=== PATIENT | female | born 1985 | race African-American/Black ===

== ENCOUNTER 2016-08-09 16:19 | Emergency (ER) | payer OTHER ==
[~2016-08-09] VITALS: Ht 170.2 cm; Wt 61.2 kg
--- NOTE | 2016-08-09 16:30 | NUR ---
PRESENTS SELF TO ED FOR LOWER ABDOMINAL PAIN SINCE LST NIGHT. PATIENT IS 31WKS. . NO BLEEDING, NO DYSURIA NOR HEMATURIA. DENIES NAUSEA AND VOMITTING. AFEBRILE. GOWNED PT AND PLACED ON TELE MONITOR. VSS
[2016-08-09 17:00] VITALS: BP 127/70
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
== END 2016-08-09 17:16 | disposition home or self-care (01) ==
LOC: ER 16:22
DX: Z53.21 Procedure and treatment not carried out due to patient leaving prior to being seen by health care provider (principal)
CPT/HCPCS: A4606; Z7610

== ENCOUNTER 2016-08-13 12:59 | Emergency (ER) | payer MEDICAID, OTHER ==
[~2016-08-13] VITALS: Ht 165.1 cm; Wt 52.2 kg
--- NOTE | 2016-08-13 13:21 | NUR ---
DR HALL AT BEDSIDE FOR EVAL.
[2016-08-13 13:24] VITALS: BP 116/81
--- NOTE | 2016-08-13 13:38 | NUR ---
U/S TECH AT BEDSIDE FOR PELVIC ULTRASOUND.
--- NOTE | 2016-08-13 13:59 | NUR ---
PARTS COUNTER SPECIALIST AT BEDSIDE FOR BLOOD DRAW.
[2016-08-13 14:03] LABS: BASOPHILS # (AUTO) 0.2 /CMM (0.0-0.2); BASOPHILS % (AUTO) 2.3 % (0.0-2.0); EOSINOPHILS # (AUTO) 0.2 /CMM (0.0-0.7); EOSINOPHILS % (AUTO) 2.4 % (0.0-6.0); HEMATOCRIT 41 % (33-45); HEMOGLOBIN 9.8 g/dL (11.5-14.8); LYMPHOCYTES # (AUTO) 1.2 /CMM (0.8-4.8); LYMPHOCYTES % (AUTO) 18.6 % (20.0-44.0); MEAN CORPUSCULAR HEMOGLOBIN 21 PG (26.0-33.0); MEAN CORPUSCULAR HGB CONC 24 g/dl (31.0-36.0); MEAN CORPUSCULAR VOLUME 89 fL (82-100); MONOCYTES # (AUTO) 0.3 /CMM (0.1-1.30); NEUTROPHILS # (AUTO) 4.8 /CMM (1.8-8.9); NEUTROPHILS % (AUTO) 71.7 % (43.0-81.0); PLATELET COUNT (AUTO) 241 /CMM (150-450); RDW COEFFICIENT OF VARIATION 10.6 (11.5-15.0); RED BLOOD CELL COUNT(AUTO) 4.58 MIL/uL (4.0-5.2); WHITE BLOOD COUNT (AUTO) 6.7 K/uL (4.3-11.0)
[2016-08-13 14:13] LABS: CALCIUM, SERUM 8.6 mg/dL (8.5-10.1); CREATININE 0.5 mg/dL (0.6-1.3); POTASSIUM 3.6 mmol/L (3.5-5.1)
[2016-08-13 14:51] LABS: APPEARANCE,URINE Clear (CLEAR); BILIRUBIN,URINE Negative (NEGATIVE); BLOOD, URINE Negative Ery/uL (NEGATIVE); COLOR,URINE Yellow (YELLOW); KETONES,URINE Negative (NEGATIVE); LEUKOCYTE ESTERASE ,URINE Negative (NEGATIVE); NITRITE, URINE Negative (NEGATIVE); PH,URINE 6.5 (5.0-8.0); PROTEIN,URINE Negative (NEGATIVE); UGLUCOSE Negative (NEGATIVE); UROBILINOGEN,URINE 0.2 EU/dL (0.2)
--- NOTE | 2016-08-13 15:03 | NUR ---
Patient discharged to home in stable condition. Written and verbal after care instructions given. Patient verbalizes understanding of instruction.
== END 2016-08-13 15:04 | disposition home or self-care (01) ==
LOC: ER 13:01
DX: O20.0 Threatened abortion (principal)
CPT/HCPCS: 36415; 76856; 80048; 81001; 84702; 85025; 99285; A4606; Z7610; 81000-TC

== ENCOUNTER 2016-09-05 14:23 | Emergency (ER) | payer MEDICAID ==
[~2016-09-05] VITALS: Ht 167.6 cm; Wt 60.3 kg
[2016-09-05] MEDS ORDERED: ACETAMINOPHEN 325 MG TABLET PO ONE (15:30)
[2016-09-05 16:16] VITALS: BP 111/74
== END 2016-09-05 17:00 | disposition home or self-care (01) ==
LOC: ER 14:25
DX: O03.9 Complete or unspecified spontaneous abortion without complication (principal); Z3A.11 11 weeks gestation of pregnancy; D64.9 Anemia, unspecified
CPT/HCPCS: 76856; 99284; A4606; Z7610

== ENCOUNTER 2017-08-20 16:22 | Emergency (ER) | payer MEDICAID, OTHER | END 2017-08-20 16:42 | disposition left against medical advice (07) | LOC: ER 16:23 | DX: Z53.21 Procedure and treatment not carried out due to patient leaving prior to being seen by health care provider (principal) ==

== ENCOUNTER 2017-10-05 13:29 | Emergency (ER) | payer OTHER ==
[~2017-10-05] VITALS: Ht 165.1 cm; Wt 63.5 kg
[2017-10-05 13:34] VITALS: BP 124/87
== END 2017-10-05 14:09 | disposition home or self-care (01) ==
LOC: ER 13:30
DX: J06.9 Acute upper respiratory infection, unspecified (principal)
CPT/HCPCS: A4606; Z7610

== ENCOUNTER 2018-02-19 06:51 | Emergency (ER) | payer MEDICAID ==
[~2018-02-19] VITALS: Ht 167.6 cm; Wt 63.5 kg
--- NOTE | 2018-02-19 06:51 | NUR ---
headache w/ rt side facial pain, N/V, no dizziness x last night. VSS NO ACUTE DISTRESS NOTED AT THIS TIME. SKIN WARM AND INTACT. PT IS ALERT AND ORIENTEDX4 ABLE TO MAKE NEEDS KNOWN. BREATHING RATE WNL WITH ADEQUATE CHEST RISE/FALL. WILL ENDORSE CARE TO AM NURSE.
--- NOTE | 2018-02-19 06:52 | NUR ---
ER MD OSMAN AT BEDSIDE
--- NOTE | 2018-02-19 07:10 | NUR ---
NOT ABLE TO PROVIDE URINE SPECIMEN AT THIS TIME
[2018-02-19] MEDS ORDERED: ONDANSETRON HCL/PF 4 MG/2 ML VIAL IVP ONE (07:30)
[2018-02-19] MEDS ORDERED: MORPHINE SULFATE INJ 2 MG/ML DISP.SYRIN IV ONE ×2 (07:30→12:00)
[2018-02-19] MEDS ORDERED: IV NS 0.9% 1,000 ML BAG IV ONE (07:30)
--- NOTE | 2018-02-19 07:30 | NUR ---
TRIED TO PUT IV PERIPHERAL LINE, UNSUCCESSFUL AT FIRST TRY, PT DOES NOT WANT TO BE POKED TWICE. ABLE TO GIVE IV MEDICATION BEFORE TOTALLY PULLING OUT IV CATH. NOT ABLE TO GIVE NS 0.9% 1000ML.
[2018-02-19] MEDS ORDERED: ONDANSETRON HCL/PF 4 MG/2 ML VIAL ONE (07:33)
[2018-02-19] MEDS ORDERED: MORPHINE SULFATE INJ 4 MG/ML DISP.SYRIN ONE ×2 (07:33→11:35)
[2018-02-19] MEDS ORDERED: HYDROCODONE/APAP 5/325MG 1 EACH TABLET PO ONE (08:00)
[2018-02-19] MEDS ORDERED: ONDANSETRON 4 MG TAB.RAPDIS PO ONE (08:00)
[2018-02-19 08:20] LABS: BASOPHILS % (AUTO) 0.5 % (0.0-2.0); EOSINOPHILS % (AUTO) 0.7 % (0.0-6.0); HEMATOCRIT 41 % (33-45); HEMOGLOBIN 13.6 g/dL (11.5-14.8); LYMPHOCYTES % (AUTO) 13.6 % (20.0-44.0); MEAN CORPUSCULAR HGB CONC 33 g/dl (31.0-36.0); MEAN CORPUSCULAR VOLUME 94 fL (82-100); MONOCYTES # (AUTO) 0.4 /CMM (0.1-1.30); MONOCYTES % (AUTO) 4.6 % (2.0-12.0); NEUTROPHILS # (AUTO) 6.2 /CMM (1.8-8.9); NEUTROPHILS % (AUTO) 80.6 % (43.0-81.0); PLATELET COUNT (AUTO) 258 /CMM (150-450); RED BLOOD CELL COUNT(AUTO) 4.39 MIL/uL (4.0-5.2); WHITE BLOOD COUNT (AUTO) 7.6 K/uL (4.3-11.0)
[2018-02-19 08:24] LABS: CALCIUM, SERUM 9.2 mg/dL (8.5-10.1); CREATININE 0.9 mg/dL (0.6-1.3)
--- NOTE | 2018-02-19 08:52 | NUR ---
OUT FOR CT OF HEAD WO CONTRAST, SIGNED WAIVER FOR TEST URINE
[2018-02-19] MEDS ORDERED: HYDROCODONE/APAP 5/325MG 1 EACH TABLET ONE (09:14)
--- NOTE | 2018-02-19 11:41 | NUR ---
PT STILL C/O PAIN, DR OSMAN AWARE. VERBAL ORDER OF MORPHINE 4MG IVP CARRIED OUT. WILL CONTINUE TO MONITOR.
--- NOTE | 2018-02-19 12:12 | NUR ---
Patient discharged to home in stable condition. Instructed not to drive. Written and verbal after care instructions given. Patient verbalizes understanding of instruction.
[2018-02-19 12:14] VITALS: BP 132/84
== END 2018-02-19 12:14 | disposition home or self-care (01) ==
LOC: ER 06:54
DX: R51 Headache (principal); F10.10 Alcohol abuse, uncomplicated; Y90.9 Presence of alcohol in blood, level not specified
CPT/HCPCS: 36415; 70450; 80048; 85025; 85730; 96374 ×2; 96376; 99284; A4606; J2270 ×2; J2405; J7030; Z7610

== ENCOUNTER 2018-08-28 09:35 | Emergency (ER) | payer MEDICAID ==
[~2018-08-28] VITALS: Ht 167.6 cm; Wt 61.2 kg
[2018-08-28 09:43] VITALS: BP 140/86
== END 2018-08-28 10:02 | disposition home or self-care (01) ==
LOC: ER 09:35
DX: S00.81XA Abrasion of other part of head, initial encounter (principal); G44.209 Tension-type headache, unspecified, not intractable; F10.10 Alcohol abuse, uncomplicated; I10 Essential (primary) hypertension; Y90.9 Presence of alcohol in blood, level not specified; X58.XXXA Exposure to other specified factors, initial encounter; Y93.89 Activity, other specified; Y92.89 Other specified places as the place of occurrence of the external cause; Y99.8 Other external cause status

== ENCOUNTER 2019-10-13 12:49 | Emergency (ER) | payer MEDICAID ==
[~2019-10-13] VITALS: Ht 165.1 cm; Wt 61.2 kg
[2019-10-13 12:53] VITALS: BP 138/88
[2019-10-13] MEDS ORDERED: IBUPROFEN 600 MG TABLET PO ONE ×2 (13:30→13:45)
--- NOTE | 2019-10-13 14:03 | NUR ---
Left velco wrist applied by IRIS Valencia Patient discharged to home in stable condition. Written and verbal after care instructions given. Patient verbalizes understanding of instruction.
== END 2019-10-13 14:04 | disposition home or self-care (01) ==
LOC: ER 12:51
DX: S53.492A Other sprain of left elbow, initial encounter (principal); S60.212A Contusion of left wrist, initial encounter; V19.9XXA Pedal cyclist (driver) (passenger) injured in unspecified traffic accident, initial encounter; Y93.55 Activity, bike riding; Y92.89 Other specified places as the place of occurrence of the external cause; Y99.8 Other external cause status
CPT/HCPCS: 73080-TC; 73100-TC

== ENCOUNTER 2020-01-25 13:16 | Emergency (ER) | payer MEDICAID ==
[~2020-01-25] VITALS: Ht 167.6 cm; Wt 63.5 kg
--- NOTE | 2020-01-25 13:25 | NUR ---
pt came to ER with c/o headache all day. c/o nausea and +vomit this morning. no fever noted. no abdominal pain. pt able to move all upper and lower extremities without any difficulty. no seizure. awaiting for MD dejesus
[2020-01-25 13:52] VITALS: BP 121/77
== END 2020-01-25 13:52 | disposition home or self-care (01) ==
LOC: ER 13:21
DX: R51.9 Headache, unspecified (principal); R11.2 Nausea with vomiting, unspecified

== ENCOUNTER 2020-06-09 18:10 | Emergency (ER) | payer MEDICAID ==
[~2020-06-09] VITALS: Ht 167.6 cm; Wt 65.8 kg
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
[2020-06-09] MEDS ORDERED: ACETAMINOPHEN 325 MG TABLET PO ONE (19:00)
[2020-06-09] MEDS ORDERED: oxyCODONE IR immediate release 5 MG PO PRN (19:00)
[2020-06-09] MEDS ORDERED: ACETAMINOPHEN 325 MG TABLET ONE (19:01)
--- NOTE | 2020-06-09 19:08 | NUR ---
WASHER HAND AT BEDSIDE FOR XRAY
[2020-06-09] MEDS ORDERED: oxyCODONE/APAP (5/325 MG) 1 UDTAB TABLET ONE (19:10)
--- NOTE | 2020-06-09 19:21 | NUR ---
REPORT GIVEN TO ROBIN LANDRUM FOR LUCIUS
[2020-06-09] MEDS ORDERED: oxyCODONE/APAP (5/325 MG) 1 UDTAB TABLET PO ONE (19:30)
[2020-06-09] MEDS ORDERED: ONDANSETRON 4 MG TAB.RAPDIS SL ONE (19:30)
[2020-06-09] MEDS ORDERED: ONDANSETRON 4 MG TAB.RAPDIS ONE (19:39)
[2020-06-09] MEDS ORDERED: OXYC-128 PO (20:39)
--- NOTE | 2020-06-09 20:49 | NUR ---
Patient discharged to home in stable condition. Written and verbal after care instructions given. Patient verbalizes understanding of instruction and RX. Pt ambulated out of ED. VSS.
[2020-06-09 20:50] VITALS: BP 124/79
== END 2020-06-09 21:12 | disposition home or self-care (01) ==
LOC: ER 18:16
DX: S70.12XA Contusion of left thigh, initial encounter (principal); R51.9 Headache, unspecified; M54.2 Cervicalgia; M25.522 Pain in left elbow; Z88.6 Allergy status to analgesic agent; Z79.899 Other long term (current) drug therapy; V49.49XA Driver injured in collision with other motor vehicles in traffic accident, initial encounter; Y93.89 Activity, other specified; Y92.413 State road as the place of occurrence of the external cause; Y99.8 Other external cause status
CPT/HCPCS: 71045; 73070; 99284; Q0162

== ENCOUNTER 2020-06-11 15:38 | Emergency (ER) | payer MEDICAID ==
[~2020-06-11] VITALS: Ht 167.6 cm; Wt 65.8 kg
[~2020-06-11 15:38] MED LIST: OXYC-128 PO
[2020-06-11 15:45] VITALS: BP 128/88
[2020-06-11 16:35] LABS: BASOPHILS % (AUTO) 0.5 % (0.0-2.0); HEMATOCRIT 36 % (33-45); HEMOGLOBIN 12.1 g/dL (11.5-14.8); LYMPHOCYTES # (AUTO) 1.5 /CMM (0.8-4.8); LYMPHOCYTES % (AUTO) 34.7 % (20.0-44.0); MEAN CORPUSCULAR HGB CONC 33 g/dl (31.0-36.0); MEAN CORPUSCULAR VOLUME 95 fL (82-100); MONOCYTES # (AUTO) 0.4 /CMM (0.1-1.30); MONOCYTES % (AUTO) 9.1 % (2.0-12.0); NEUTROPHILS # (AUTO) 2.3 /CMM (1.8-8.9); NEUTROPHILS % (AUTO) 52.7 % (43.0-81.0); PLATELET COUNT (AUTO) 223 /CMM (150-450); RED BLOOD CELL COUNT(AUTO) 3.81 MIL/uL (4.0-5.2); WHITE BLOOD COUNT (AUTO) 4.4 K/uL (4.3-11.0)
[2020-06-11 16:42] LABS: CALCIUM, SERUM 8.4 mg/dL (8.5-10.1); CREATININE 0.8 mg/dL (0.6-1.3); POTASSIUM 3.8 mmol/L (3.5-5.1)
--- NOTE | 2020-06-11 17:48 | NUR ---
PT. VERBALIZED UNDERSTANDING OF AFTERCARE INSTRUCTIONS.
== END 2020-06-11 17:50 | disposition home or self-care (01) ==
LOC: ER 15:55
DX: S70.12XA Contusion of left thigh, initial encounter (principal); S80.11XA Contusion of right lower leg, initial encounter; S40.022A Contusion of left upper arm, initial encounter; S40.021A Contusion of right upper arm, initial encounter; F10.10 Alcohol abuse, uncomplicated; I10 Essential (primary) hypertension; Y90.9 Presence of alcohol in blood, level not specified; Z79.899 Other long term (current) drug therapy; Z88.6 Allergy status to analgesic agent; X58.XXXA Exposure to other specified factors, initial encounter; Y93.89 Activity, other specified; Y92.89 Other specified places as the place of occurrence of the external cause; Y99.8 Other external cause status
CPT/HCPCS: 36415; 80048-TC; 85025-TC; 85610-TC; 85730-TC; 93971-TC

== ENCOUNTER 2020-07-21 18:54 | Emergency (ER) | payer MEDICAID ==
[~2020-07-21] VITALS: Ht 167.6 cm; Wt 63.5 kg
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
[2020-07-21] MEDS ORDERED: HYDROCODONE/APAP 5/325MG TABLET ONE (19:14)
[2020-07-21] MEDS: HYDROCODONE/APAP 5/325MG TABLET PO ONE (19:15)
--- NOTE | 2020-07-21 19:15 | NUR ---
XRAY AT BEDSIDE
--- NOTE | 2020-07-21 19:30 | NUR ---
emt at bedside for wound care and crutch training
[2020-07-21] MEDS ORDERED: TRAM50TA2 PO (19:42)
[2020-07-21] MEDS: TDAP [DIPH/PERTUSSIS/TET] 0.5 ML VIAL IM ONE (19:45)
--- NOTE | 2020-07-21 19:45 | NUR ---
Patient discharged to home in stable condition. Written and verbal after care instructions given. Patient verbalizes understanding of instruction.Pt ambulatory with a steady gait
[2020-07-21] MEDS ORDERED: TDAP [DIPH/PERTUSSIS/TET] 0.5 ML VIAL IM ONE (19:47)
[2020-07-21 19:55] VITALS: BP 120/85
== END 2020-07-21 19:45 | disposition home or self-care (01) ==
LOC: ER 18:58
DX: S91.111A Laceration without foreign body of right great toe without damage to nail, initial encounter (principal); F10.10 Alcohol abuse, uncomplicated; Y90.9 Presence of alcohol in blood, level not specified; Z79.899 Other long term (current) drug therapy; W01.0XXA Fall on same level from slipping, tripping and stumbling without subsequent striking against object, initial encounter; Y93.89 Activity, other specified; Y92.89 Other specified places as the place of occurrence of the external cause; Y99.8 Other external cause status
CPT/HCPCS: 73630; 90471; 90715; 99283; A6403

== ENCOUNTER 2020-09-16 17:17 | Emergency (ER) | payer MEDICAID ==
[~2020-09-16] VITALS: Ht 167.6 cm; Wt 63.5 kg
[~2020-09-16 17:17] MED LIST changes: +TRAM50TA2 PO
--- NOTE | 2020-09-16 17:30 | NUR ---
Patient came in to the er c/o "CALIXTO started this am more on left side. +blurry Vison/CP/SOB". On room air, breathing evenly and unlabored. Kept comfortable, will continue to monitor accordingly.
[2020-09-16] MEDS ORDERED: ONDANSETRON 4 MG TAB.RAPDIS ONE (17:47)
[2020-09-16] MEDS ORDERED: HYDROCODONE/APAP 5/325MG TABLET ONE (17:47)
[2020-09-16] MEDS: HYDROCODONE/APAP 5/325MG TABLET PO ONE (17:53)
[2020-09-16] MEDS: ONDANSETRON 4 MG TAB.RAPDIS PO ONE (17:54)
[2020-09-16] MEDS ORDERED: SUMA50TA PO (18:33)
[2020-09-16 19:08] VITALS: BP 135/77
--- NOTE | 2020-09-16 19:08 | NUR ---
Patient discharged to home in stable condition. Written and verbal after care instructions given. Patient verbalizes understanding of instruction.
== END 2020-09-16 19:08 | disposition home or self-care (01) ==
LOC: ER 17:22
DX: R51.9 Headache, unspecified (principal); R06.02 Shortness of breath; R07.89 Other chest pain; Z88.6 Allergy status to analgesic agent; Z79.899 Other long term (current) drug therapy
CPT/HCPCS: 99283; Q0162

== ENCOUNTER 2020-09-24 16:01 | Emergency (ER) | payer MEDICAID ==
[~2020-09-24] VITALS: Ht 167.6 cm; Wt 65.8 kg
[~2020-09-24 16:01] MED LIST changes: +SUMA50TA PO
[2020-09-24] MEDS: ONDANSETRON HCL/PF 4 MG/2 ML VIAL IVP ONE (17:00)
[2020-09-24] MEDS: IV NS 0.9% 1,000 ML BAG IV ONE (17:00)
[2020-09-24] MEDS: MORPHINE SULFATE INJ 2 MG/ML DISP.SYRIN IV ONE ×2 (17:00→20:11)
[2020-09-24] MEDS ORDERED: ONDANSETRON HCL/PF 4 MG/2 ML VIAL ONE (17:38)
[2020-09-24] MEDS ORDERED: MORPHINE SULFATE INJ 4 MG/ML DISP.SYRIN ONE ×2 (17:39→19:34)
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
[2020-09-24 18:51] LABS: ALBUMIN 4.3 g/dL (3.4-5.0); BILIRUBIN,DIRECT 0.2 mg/dL (0.0-0.2); BILIRUBIN,TOTAL 0.9 mg/dL (0.2-1.0); CALCIUM, SERUM 9.4 mg/dL (8.5-10.1); CREATININE 0.7 mg/dL (0.6-1.3); POTASSIUM 4.1 mmol/L (3.5-5.1); TOTAL PROTEIN, SERUM 7.9 g/dL (6.4-8.2)
--- NOTE | 2020-09-24 19:30 | NUR ---
zeeshan rn spoke withn pt heather pleasant had a talk and all is good
[2020-09-24 19:47] LABS: BASOPHILS # (AUTO) 0.1 K/uL (0.0-0.2); BASOPHILS % (AUTO) 0.8 % (0.0-2.0); EOSINOPHILS % (AUTO) 0.7 % (0.0-6.0); HEMATOCRIT 41 % (33-45); HEMOGLOBIN 13.1 g/dL (11.5-14.8); LYMPHOCYTES # (AUTO) 1.2 K/uL (0.8-4.8); LYMPHOCYTES % (AUTO) 17.3 % (20.0-44.0); MEAN CORPUSCULAR HGB CONC 32 g/dl (31.0-36.0); MEAN CORPUSCULAR VOLUME 97 fL (82-100); MONOCYTES # (AUTO) 0.4 K/uL (0.1-1.30); MONOCYTES % (AUTO) 6.2 % (2.0-12.0); NEUTROPHILS # (AUTO) 5.2 K/uL (1.8-8.9); PLATELET COUNT (AUTO) 289 K/uL (150-450); RED BLOOD CELL COUNT(AUTO) 4.21 MIL/uL (4.0-5.2); WHITE BLOOD COUNT (AUTO) 6.9 K/uL (4.3-11.0)
--- NOTE | 2020-09-24 19:59 | NUR ---
URINE COLLECTED AND SENT TO THE LAB.
[2020-09-24 20:26] LABS: BILIRUBIN,URINE NEGATIVE (NEGATIVE); COLOR,URINE YELLOW (YELLOW); LEUKOCYTE ESTERASE ,URINE TRACE (NEGATIVE); NITRITE, URINE NEGATIVE (NEGATIVE); PROTEIN,URINE NEGATIVE (NEGATIVE); UGLUCOSE NEGATIVE (NEGATIVE); UROBILINOGEN,URINE 0.2 EU/dL (0.2)
[2020-09-24 20:32] LABS: BACTERIA,URINE 2+ /HPF (None Seen)
--- NOTE | 2020-09-24 21:29 | NUR ---
CALLED VALERI TO HAVE IMAGE READ
[2020-09-24] MEDS ORDERED: ONDA4TAB5 PO (22:02)
--- NOTE | 2020-09-24 22:20 | NUR ---
Patient discharged to home in stable condition. Written and verbal after care instructions given. Patient verbalizes understanding of instruction.IV removed. Catheter intact and site benign. Pressure and 4x4 applied to site. No bleeding noted. Pt ambulatory with a steady gait
[2020-09-24 23:19] VITALS: BP 81/119
== END 2020-09-24 22:21 | disposition home or self-care (01) ==
LOC: ER 16:18
DX: R55 Syncope and collapse (principal); F19.10 Other psychoactive substance abuse, uncomplicated; Z88.6 Allergy status to analgesic agent; Z79.899 Other long term (current) drug therapy
CPT/HCPCS: 36415; 70450; 71045; 80048; 80076; 81001; 84703; 85025; 87086; 93005; 96361; 96374; 96375; 96376; 99285; J2270 ×2; J2405; J7030; 87186-TC

== ENCOUNTER 2021-01-29 05:40 | Emergency (ER) | payer MEDICAID ==
[~2021-01-29] VITALS: Ht 167.6 cm; Wt 63.5 kg
[~2021-01-29 05:40] MED LIST changes: +ONDA4TAB5 PO
--- NOTE | 2021-01-29 06:29 | NUR ---
URINE COLLECTED AND SENT TO LAB
--- NOTE | 2021-01-29 06:30 | NUR ---
PT A/O X 3, CAME FROM HOME WOKE UP WITH ABDOMIANL PAIN /. IV TO LAC 20 GUAGE STARTED WITH GOOD BLOOD RETURN. ALL NEEDS MET. WILL CONT, TO MONITOR PT.
--- NOTE | 2021-01-29 06:31 | NUR ---
ADDENDUM: Intravenous End Time Documentation: Normal saline 1 liter (IV-WO) : start time: 0631 am ; end time:730 am : IV site: LAC PIV # 20 Port #1
[2021-01-29] MEDS ORDERED: MORPHINE SULFATE INJ 2 MG/ML DISP.SYRIN ONE (06:45)
[2021-01-29] MEDS ORDERED: ONDANSETRON HCL/PF 4 MG/2 ML VIAL ONE (06:46)
[2021-01-29] MEDS: IV NS 0.9% 1,000 ML BAG IV ONE (06:53)
[2021-01-29] MEDS: ONDANSETRON HCL/PF 4 MG/2 ML VIAL IVP ONE (06:54)
[2021-01-29] MEDS: MORPHINE SULFATE INJ 2 MG/ML DISP.SYRIN IV ONE (06:54)
--- NOTE | 2021-01-29 07:14 | NUR ---
IV INFILTRATED AND PT REFUSE RESTART. IV REMOVED. MADE AWARE PATIENT OKAY TO DRINK FLUIDS.
[2021-01-29 07:18] LABS: BILIRUBIN,URINE NEGATIVE (NEGATIVE); LEUKOCYTE ESTERASE ,URINE NEGATIVE (NEGATIVE); NITRITE, URINE NEGATIVE (NEGATIVE); PROTEIN,URINE NEGATIVE (NEGATIVE); UGLUCOSE NEGATIVE (NEGATIVE); UROBILINOGEN,URINE 0.2 EU/dL (0.2)
[2021-01-29 07:28] LABS: COLOR,URINE YELLOW (YELLOW)
[2021-01-29 07:29] LABS: SQUAMOUS EPITHELIAL CELL,UR Moderate /HPF (None Seen)
[2021-01-29 07:30] LABS: BACTERIA,URINE Moderate /HPF (None Seen); BASOPHILS # (AUTO) 0.1 K/uL (0.0-0.2); BASOPHILS % (AUTO) 1.3 % (0.0-2.0); EOSINOPHILS % (AUTO) 2.9 % (0.0-6.0); HEMATOCRIT 40 % (33-45); LYMPHOCYTES # (AUTO) 1.5 K/uL (0.8-4.8); LYMPHOCYTES % (AUTO) 32.6 % (20.0-44.0); MEAN CORPUSCULAR HGB CONC 33 g/dl (31.0-36.0); MEAN CORPUSCULAR VOLUME 95 fL (82-100); MONOCYTES # (AUTO) 0.3 K/uL (0.1-1.30); MONOCYTES % (AUTO) 6.8 % (2.0-12.0); NEUTROPHILS # (AUTO) 2.5 K/uL (1.8-8.9); NEUTROPHILS % (AUTO) 56.4 % (43.0-81.0); PLATELET COUNT (AUTO) 218 K/uL (150-450); RED BLOOD CELL COUNT(AUTO) 4.18 MIL/uL (4.0-5.2); WHITE BLOOD COUNT (AUTO) 4.4 K/uL (4.3-11.0)
[2021-01-29 07:44] LABS: ALBUMIN 3.9 g/dL (3.4-5.0); BILIRUBIN,DIRECT 0.1 mg/dL (0.0-0.2); BILIRUBIN,TOTAL 0.4 mg/dL (0.2-1.0); CALCIUM, SERUM 8.4 mg/dL (8.5-10.1); CREATININE 0.8 mg/dL (0.6-1.3); POTASSIUM 4.4 mmol/L (3.5-5.1); TOTAL PROTEIN, SERUM 7.5 g/dL (6.4-8.2)
[2021-01-29] MEDS ORDERED: ONDANSETRON 4 MG TAB.RAPDIS SL ONE (09:00)
[2021-01-29 09:44] VITALS: BP 127/81
--- NOTE | 2021-01-29 09:44 | NUR ---
IV removed. Catheter intact and site benign. Pressure and 4x4 applied to site. No bleeding noted. Patient discharged to home in stable condition. Written and verbal after care instructions given. Patient verbalizes understanding of instruction.
== END 2021-01-29 09:45 | disposition home or self-care (01) ==
LOC: ER 05:42
DX: G89.29 Other chronic pain (principal); R10.84 Generalized abdominal pain; Z88.6 Allergy status to analgesic agent; Z79.899 Other long term (current) drug therapy
CPT/HCPCS: 36415; 74176; 80048; 80076; 80307; 81001; 83690; 84703; 85025; 87086; 96361; 96374; 96375; 99284; J2270; J2405; J7030

== ENCOUNTER 2021-04-11 11:57 | Emergency (ER) | payer MEDICAID ==
[~2021-04-11] VITALS: Ht 165.1 cm; Wt 68.0 kg
--- NOTE | 2021-04-11 12:17 | NUR ---
pt self presents to ED. ammbulatory to er bed 16 c/o severe abdominal pain w/ nausea and vomiting w/ noted blood tinged vomitous since yesterday. pt with hx of colitis. gowned and placed on monitor stable vitals. awaiting md dejesus.
--- NOTE | 2021-04-11 12:33 | NUR ---
dr marlow at bedside for eval
[2021-04-11] MEDS ORDERED: ONDANSETRON HCL/PF 4 MG/2 ML VIAL ONE ×2 (12:56→13:53)
[2021-04-11] MEDS ORDERED: MORPHINE SULFATE INJ 4 MG/ML DISP.SYRIN ONE ×2 (12:56→13:53)
[2021-04-11] MEDS ORDERED: IV NS 0.9% 1,000 ML BAG IV ONE (13:00)
[2021-04-11] MEDS ORDERED: MORPHINE SULFATE INJ 2 MG/ML DISP.SYRIN IV ONE ×2 (13:00→14:00)
[2021-04-11] MEDS ORDERED: ONDANSETRON HCL/PF 4 MG/2 ML VIAL IVP ONE (13:00)
--- NOTE | 2021-04-11 13:05 | NUR ---
iv line started blood drawn and sent to lab.
[2021-04-11 13:18] LABS: BASOPHILS % (AUTO) 0.4 % (0.0-2.0); EOSINOPHILS % (AUTO) 0.5 % (0.0-6.0); HEMATOCRIT 41 % (33-45); HEMOGLOBIN 13.8 g/dL (11.5-14.8); LYMPHOCYTES # (AUTO) 0.9 K/uL (0.8-4.8); LYMPHOCYTES % (AUTO) 11.9 % (20.0-44.0); MEAN CORPUSCULAR HGB CONC 34 g/dl (31.0-36.0); MEAN CORPUSCULAR VOLUME 93 fL (82-100); MONOCYTES # (AUTO) 0.5 K/uL (0.1-1.30); MONOCYTES % (AUTO) 7.4 % (2.0-12.0); NEUTROPHILS # (AUTO) 5.9 K/uL (1.8-8.9); NEUTROPHILS % (AUTO) 79.8 % (43.0-81.0); PLATELET COUNT (AUTO) 267 K/uL (150-450); RED BLOOD CELL COUNT(AUTO) 4.44 MIL/uL (4.0-5.2); WHITE BLOOD COUNT (AUTO) 7.4 K/uL (4.3-11.0)
[2021-04-11] MEDS ORDERED: IOHEXOL-350 100 ML VIAL IV ONE (13:19)
[2021-04-11] MEDS ORDERED: IV NS 0.9% 250 ML IV ONE (13:19)
[2021-04-11] MEDS ORDERED: CT SWABBABLE VALVE TRANS SET 1 EA INFUS.SET MC ONE (13:19)
[2021-04-11 13:33] LABS: ALBUMIN 4.2 g/dL (3.4-5.0); BILIRUBIN,DIRECT 0.3 mg/dL (0.0-0.2); CALCIUM, SERUM 8.8 mg/dL (8.5-10.1); POTASSIUM 3.6 mmol/L (3.5-5.1); TOTAL PROTEIN, SERUM 8.1 g/dL (6.4-8.2)
--- NOTE | 2021-04-11 13:58 | NUR ---
THE PATIENT IS TAKEN TO CT VIA RNEY
[2021-04-11] MEDS ORDERED: ONDANSETRON HCL/PF - ER 4 MG/2 ML VIAL IV ONE (14:00)
[2021-04-11] MEDS ORDERED: ONDA4TAB5 PO (14:41)
[2021-04-11] MEDS ORDERED: PANT40TA2 PO (14:41)
[2021-04-11] MEDS ORDERED: HYDROCODONE/APAP 5/325MG TABLET PO ONE (15:30)
[2021-04-11] MEDS ORDERED: HYDROCODONE/APAP 5/325MG TABLET ONE (15:30)
--- NOTE | 2021-04-11 15:39 | NUR ---
IV removed. Catheter intact and site benign. Pressure and 4x4 applied to site. No bleeding noted.Patient discharged to home in stable condition. Written and verbal after care instructions given. Patient verbalizes understanding of instruction.
[2021-04-11 15:40] VITALS: BP 126/91
== END 2021-04-11 15:40 | disposition home or self-care (01) ==
LOC: ER 12:01
DX: R10.84 Generalized abdominal pain (principal); R11.2 Nausea with vomiting, unspecified; Z88.6 Allergy status to analgesic agent; Z79.899 Other long term (current) drug therapy
CPT/HCPCS: 36415; 74177; 80048; 80076; 83690; 84703; 85025; 85730; 96361; 96374; 96375; 96376; 99285; J2270 ×2; J2405 ×3; J7030; J7050; Q9967

== ENCOUNTER 2021-12-16 17:15 | Emergency (ER) | payer MEDICAID ==
[~2021-12-16] VITALS: Ht 165.1 cm; Wt 63.5 kg
[~2021-12-16 17:15] MED LIST changes: +PANT40TA2 PO
--- NOTE | 2021-12-16 17:23 | NUR ---
CAME IN FOR CHEST TIGHTNESS STARTED 2HRS AGO, ALSO C/O HEADACHE, ABDOMINAL PAIN, NAUSEA AND VOMITING x 2 DAYS. TO ER BED 16, HOOKED TO MONITOR, CHANGED TO HOSP GOWN, WARM BLANKET PROVIDED. AWAITING MD MCFARLAND
--- NOTE | 2021-12-16 17:52 | NUR ---
DR BALLESTEROS AT BEDSIDE
[2021-12-16] MEDS ORDERED: ACETAMINOPHEN ES 500 MG TABLET PO ONE (18:00)
[2021-12-16] MEDS ORDERED: PROCHLORPERAZINE EDISYLATE 10 MG/2 ML VIAL IVP ONE ×2 (18:00→19:30)
[2021-12-16] MEDS ORDERED: PROCHLORPERAZINE EDISYLATE 10 MG/2 ML VIAL ONE ×2 (18:13→19:20)
[2021-12-16] MEDS ORDERED: ACETAMINOPHEN ES 500 MG TABLET ONE (18:13)
--- NOTE | 2021-12-16 18:23 | NUR ---
PATIENT REFUSED MEDS AND BLOOD WORKS, WANTS TO TALK TO MD FAVIAN MD AWARE
--- NOTE | 2021-12-16 18:23 | NUR ---
DR BALLESTEROS AT BEDSIDE TALKING TO THE PATIENT
[2021-12-16] MEDS ORDERED: HYDROCODONE/APAP 5/325MG TABLET ONE (18:37)
[2021-12-16] MEDS ORDERED: METOCLOPRAMIDE HCL 10 MG TABLET ONE (18:38)
[2021-12-16] MEDS ORDERED: METOCLOPRAMIDE HCL 10 MG TABLET PO ONE (19:00)
[2021-12-16] MEDS ORDERED: HYDROCODONE/APAP 5/325MG TABLET PO ONE (19:00)
[2021-12-16] MEDS ORDERED: MORPHINE SULFATE INJ 2 MG/ML DISP.SYRIN ONE (19:20)
[2021-12-16] MEDS ORDERED: METOCLOPRAMIDE HCL 10 MG/2 ML VIAL ONE (19:20)
[2021-12-16] MEDS ORDERED: KETOROLAC TROMETHAMINE 15 MG/ML VIAL ONE (19:20)
[2021-12-16] MEDS ORDERED: METOCLOPRAMIDE HCL 10 MG/2 ML VIAL IV ONE (19:30)
[2021-12-16] MEDS ORDERED: MORPHINE SULFATE INJ 2 MG/ML DISP.SYRIN IV ONE (19:30)
[2021-12-16] MEDS ORDERED: KETOROLAC TROMETHAMINE INJ 30 MG/ML VIAL IV ONE (19:30)
[2021-12-16 19:47] LABS: MAGNESIUM 1.9 mg/dL (1.8-2.4)
[2021-12-16 19:48] LABS: CALCIUM, SERUM 8.8 mg/dL (8.5-10.1); CARBON DIOXIDE 31 mmol/L (21-32); CHLORIDE 100 mmol/L (98-107); CREATININE 0.8 mg/dL (0.6-1.3); GLUCOSE 128 mg/dL (74-106); POTASSIUM 3.4 mmol/L (3.5-5.1); SODIUM SERUM 138 mmol/L (136-145); UREA NITROGEN, BLOOD 14 mg/dL (7-18)
[2021-12-16 19:54] LABS: ALANINE AMINOTRANSFERASE 26 U/L (12-78); ALBUMIN 4.2 g/dL (3.4-5.0); ALKALINE PHOSPHATASE 72 U/L (46-116); ASPARTATE AMINOTRANSFERASE 51 U/L (15-37); BILIRUBIN,DIRECT 0.2 mg/dL (0.0-0.2); BILIRUBIN,TOTAL 0.6 mg/dL (0.2-1.0); TOTAL PROTEIN, SERUM 7.8 g/dL (6.4-8.2)
--- NOTE | 2021-12-16 20:12 | NUR ---
Patient does not wish to proceed with medical care recommended by Dr. Law. Florian. Patient given information related to possible complications, up to and including , which could occur as a result of leaving the hospital at this time. Patient verbalizes understanding of risks involved due to leaving against medical advice. Patient has signed AMA form.
--- NOTE | 2021-12-16 20:12 | NUR ---
IV removed. Catheter intact and site benign. Pressure and 4x4 applied to site. No bleeding noted. Pt ambulatory with a steady gait
[2021-12-16 20:13] VITALS: BP 136/97
[2021-12-16 20:17] LABS: BASOPHILS # (AUTO) 0.1 K/uL (0.0-0.2); BASOPHILS % (AUTO) 1.3 % (0.0-2.0); EOSINOPHILS % (AUTO) 1.1 % (0.0-6.0); HEMATOCRIT 37 % (33-45); HEMOGLOBIN 12.5 g/dL (11.5-14.8); LYMPHOCYTES # (AUTO) 1.2 K/uL (0.8-4.8); LYMPHOCYTES % (AUTO) 25.7 % (20.0-44.0); MEAN CORPUSCULAR HGB CONC 34 g/dl (31.0-36.0); MEAN CORPUSCULAR VOLUME 97 fL (82-100); MONOCYTES # (AUTO) 0.4 K/uL (0.1-1.30); MONOCYTES % (AUTO) 9.4 % (2.0-12.0); NEUTROPHILS % (AUTO) 62.5 % (43.0-81.0); PLATELET COUNT (AUTO) 235 K/uL (150-450); RED BLOOD CELL COUNT(AUTO) 3.86 MIL/uL (4.0-5.2); THYROID STIMULATING HORMONE 3.222 uIU/mL (0.358-3.74); WHITE BLOOD COUNT (AUTO) 4.8 K/uL (4.3-11.0)
== END 2021-12-16 20:14 | disposition home or self-care (01) ==
LOC: ER 17:19
DX: R07.89 Other chest pain (principal); Z88.6 Allergy status to analgesic agent; Z79.899 Other long term (current) drug therapy
CPT/HCPCS: 99285; 96374; 96375; 71045; 93005 ×3; 85025; 80048; 80076; 83735; 36415; 84443; 84484; J0780; J2765; J8597; J7030; J2270; J1885

== ENCOUNTER 2022-08-12 10:09 | Emergency (ER) | payer MEDICAID ==
[~2022-08-12] VITALS: Ht 167.6 cm; Wt 61.2 kg
[2022-08-12 10:18] VITALS: BP 121/88
--- NOTE | 2022-08-12 10:30 | NUR ---
throat discomfort x 4 days "i feel like theres a ball in my throat"
[2022-08-12] MEDS ORDERED: DEXAMETHASONE 1 MG TABLET PO ONE (11:00)
[2022-08-12] MEDS ORDERED: AMOX/CLAVULANATE 875 MG TABLET PO ONE (11:00)
[2022-08-12] MEDS ORDERED: DEXAMETHASONE 1 MG TABLET ONE (11:10)
[2022-08-12] MEDS ORDERED: DEXAMETHASONE 4 MG TABLET ONE (11:10)
[2022-08-12] MEDS ORDERED: AMOX/CLAVULANATE 875 MG TABLET ONE (11:11)
[2022-08-12] MEDS ORDERED: LORATADINE 10 MG TABLET ONE (11:34)
[2022-08-12] MEDS: LORATADINE 10 MG TABLET PO SCH ×2 (11:36→11:37)
--- NOTE | 2022-08-12 11:37 | NUR ---
PT REFUSED CLARITIN MEDS ORDERED
[2022-08-12] MEDS ORDERED: AMOX-430 PO (11:50)
[2022-08-12] MEDS ORDERED: EPIN0.3P3 IM (11:50)
== END 2022-08-12 12:21 | disposition home or self-care (01) ==
LOC: ER 10:15
DX: K12.2 Cellulitis and abscess of mouth (principal); Z79.899 Other long term (current) drug therapy; Z20.822 Contact with and (suspected) exposure to COVID-19; Z88.5 Allergy status to narcotic agent
CPT/HCPCS: 99283; 87426; 87880; J8540 ×2; C9803; 86403-TC

== ENCOUNTER 2023-04-25 19:25 | Emergency (ER) | payer MEDICAID ==
[~2023-04-25] VITALS: Ht 167.6 cm; Wt 59.0 kg
[~2023-04-25 19:25] MED LIST changes: +AMOX-430 PO; +EPIN0.3P3 IM; +HYDR-4209 PO
[2023-04-25] MEDS ORDERED: MORPHINE SULFATE INJ 4 MG/ML DISP.SYRIN ONE (20:47)
[2023-04-25] MEDS ORDERED: ONDANSETRON HCL/PF 4 MG/2 ML VIAL ONE (20:47)
[2023-04-25 20:56] LABS: BASOPHILS # (AUTO) 0.1 K/uL (0.0-0.2); BASOPHILS % (AUTO) 1.4 % (0.0-2.0); EOSINOPHILS # (AUTO) 0.1 K/uL (0.0-0.7); HEMATOCRIT 39 % (33-45); HEMOGLOBIN 13.1 g/dL (11.5-14.8); LYMPHOCYTES # (AUTO) 1.3 K/uL (0.8-4.8); LYMPHOCYTES % (AUTO) 23.3 % (20.0-44.0); MEAN CORPUSCULAR HEMOGLOBIN 35 PG (26.0-33.0); MEAN CORPUSCULAR HGB CONC 34 g/dl (31.0-36.0); MEAN CORPUSCULAR VOLUME 105 fL (82-100); MONOCYTES # (AUTO) 0.5 K/uL (0.1-1.30); NEUTROPHILS # (AUTO) 3.7 K/uL (1.8-8.9); NEUTROPHILS % (AUTO) 66.3 % (43.0-81.0); PLATELET COUNT (AUTO) 250 K/uL (150-450); RED BLOOD CELL COUNT(AUTO) 3.69 MIL/uL (4.0-5.2); RED CELL DISTRIBUTION WIDTH 13.1 % (11.5-15.0); WHITE BLOOD COUNT (AUTO) 5.6 K/uL (4.3-11.0)
[2023-04-25] MEDS ORDERED: ONDANSETRON HCL/PF 4 MG/2 ML VIAL IVP ONE (21:00)
[2023-04-25] MEDS ORDERED: MORPHINE SULFATE INJ 2 MG/ML DISP.SYRIN IV ONE (21:00)
[2023-04-25 21:01] LABS: APPEARANCE,URINE CLOUDY (CLEAR); BILIRUBIN,URINE 1+ (NEGATIVE); BLOOD, URINE 2+ Ery/uL (NEGATIVE); COLOR,URINE YELLOW (YELLOW); KETONES,URINE NEGATIVE (NEGATIVE); LEUKOCYTE ESTERASE ,URINE NEGATIVE (NEGATIVE); NITRITE, URINE NEGATIVE (NEGATIVE); PH,URINE 5.5 (5.0-8.0); PROTEIN,URINE TRACE mg/dl (NEGATIVE); UGLUCOSE NEGATIVE (NEGATIVE); UROBILINOGEN,URINE 0.2 EU/dL (0.2)
[2023-04-25 21:06] LABS: PREGNANCY TEST URINE QUAL NEGATIVE (NEGATIVE)
[2023-04-25 21:09] LABS: CALCIUM, SERUM 9.1 mg/dL (8.5-10.1); CREATININE 0.6 mg/dL (0.6-1.3); POTASSIUM 3.7 mmol/L (3.5-5.1)
[2023-04-25] MEDS ORDERED: IOHEXOL-300 100 ML VIAL IV ONE (21:10)
[2023-04-25] MEDS ORDERED: IV NS 0.9% 250 ML IV ONE (21:10)
[2023-04-25 21:15] LABS: ALBUMIN 4.3 g/dL (3.4-5.0); BILIRUBIN,DIRECT 0.3 mg/dL (0.0-0.2); BILIRUBIN,TOTAL 1.1 mg/dL (0.2-1.0); TOTAL PROTEIN, SERUM 8.4 g/dL (6.4-8.2)
[2023-04-25 21:17] VITALS: BP 138/95; TEMP 98.2; O2SAT 100
[2023-04-25 22:14] LABS: ADD URINE CULTURE NO; BACTERIA,URINE None seen /HPF (None Seen); MUCUS,URINE Few /LPF (None Seen); SQUAMOUS EPITHELIAL CELL,UR 21-50 /HPF (None Seen); WBC,URINE 0-2 /HPF (0-3)
== END 2023-04-25 21:19 | disposition left against medical advice (07) ==
LOC: ER 19:38
DX: R10.9 Unspecified abdominal pain (principal); R11.2 Nausea with vomiting, unspecified; Z88.6 Allergy status to analgesic agent
CPT/HCPCS: 99284; 96374; 96375; 85025; 80048; 83690; 80076; 84703; 81001; 36415; J2270; J2405; J7050; Q9967

== ENCOUNTER 2023-04-27 19:16 | Emergency (ER) | payer MEDICAID | END 2023-04-27 22:06 | disposition home or self-care (01) | LOC: ER 19:19 | DX: Z00.00 Encounter for general adult medical examination without abnormal findings (principal); Z53.21 Procedure and treatment not carried out due to patient leaving prior to being seen by health care provider ==

== ENCOUNTER 2023-05-08 10:43 | Emergency (ER) | payer MEDICAID ==
[~2023-05-08] VITALS: Ht 167.6 cm; Wt 70.3 kg
[2023-05-08 11:07] VITALS: TEMP 98.1
[2023-05-08] MEDS ORDERED: ONDANSETRON HCL/PF 4 MG/2 ML VIAL ONE (12:34)
[2023-05-08] MEDS ORDERED: MORPHINE SULFATE INJ 4 MG/ML DISP.SYRIN ONE (12:34)
[2023-05-08] MEDS: IV NS 0.9% 1,000 ML BAG IV ONE (12:35)
[2023-05-08] MEDS: ONDANSETRON HCL/PF 4 MG/2 ML VIAL IV ONE (12:37)
[2023-05-08] MEDS: MORPHINE SULFATE INJ 2 MG/ML DISP.SYRIN IV ONE (12:40)
[2023-05-08 12:57] LABS: BASOPHILS % (AUTO) 0.7 % (0.0-2.0); EOSINOPHILS # (AUTO) 0.1 K/uL (0.0-0.7); EOSINOPHILS % (AUTO) 1.1 % (0.0-6.0); HEMATOCRIT 39 % (33-45); LYMPHOCYTES % (AUTO) 18.2 % (20.0-44.0); MEAN CORPUSCULAR HEMOGLOBIN 35 PG (26.0-33.0); MEAN CORPUSCULAR HGB CONC 34 g/dl (31.0-36.0); MEAN CORPUSCULAR VOLUME 103 fL (82-100); MONOCYTES # (AUTO) 0.4 K/uL (0.1-1.30); MONOCYTES % (AUTO) 7.8 % (2.0-12.0); NEUTROPHILS % (AUTO) 72.2 % (43.0-81.0); PLATELET COUNT (AUTO) 183 K/uL (150-450); RED BLOOD CELL COUNT(AUTO) 3.75 MIL/uL (4.0-5.2); RED CELL DISTRIBUTION WIDTH 12.7 % (11.5-15.0); WHITE BLOOD COUNT (AUTO) 5.5 K/uL (4.3-11.0)
[2023-05-08 13:06] LABS: APPEARANCE,URINE SLIGHTLY CLOUDY (CLEAR); BILIRUBIN,URINE 1+ (NEGATIVE); BLOOD, URINE 3+ Ery/uL (NEGATIVE); COLOR,URINE DARK YELLOW (YELLOW); KETONES,URINE NEGATIVE (NEGATIVE); LEUKOCYTE ESTERASE ,URINE NEGATIVE (NEGATIVE); NITRITE, URINE NEGATIVE (NEGATIVE); PROTEIN,URINE NEGATIVE (NEGATIVE); UGLUCOSE NEGATIVE (NEGATIVE); UROBILINOGEN,URINE 0.2 EU/dL (0.2)
[2023-05-08 13:08] LABS: CALCIUM, SERUM 8.9 mg/dL (8.5-10.1); CREATININE 0.7 mg/dL (0.6-1.3); POTASSIUM 3.6 mmol/L (3.5-5.1)
[2023-05-08 13:10] LABS: ALBUMIN 4.1 g/dL (3.4-5.0); BILIRUBIN,DIRECT 0.2 mg/dL (0.0-0.2); BILIRUBIN,TOTAL 0.5 mg/dL (0.2-1.0); TOTAL PROTEIN, SERUM 7.8 g/dL (6.4-8.2)
[2023-05-08 13:12] LABS: PREGNANCY TEST URINE QUAL NEGATIVE (NEGATIVE)
[2023-05-08 13:21] LABS: ADD URINE CULTURE NO; BACTERIA,URINE Few /HPF (None Seen); SQUAMOUS EPITHELIAL CELL,UR Moderate /HPF (None Seen); WBC,URINE 0-2 /HPF (0-3)
[2023-05-08] MEDS ORDERED: HYDR-4303 PO (14:19)
[2023-05-08] MEDS ORDERED: ONDA4TAB5 PO (14:19)
[2023-05-08] MEDS ORDERED: PRED20TA PO (14:19)
[2023-05-08 15:20] VITALS: BP 126/70; O2SAT 98
== END 2023-05-08 14:42 | disposition home or self-care (01) ==
LOC: ER 10:59
DX: R19.7 Diarrhea, unspecified (principal); R10.9 Unspecified abdominal pain; R11.2 Nausea with vomiting, unspecified; R10.2 Pelvic and perineal pain; Z79.899 Other long term (current) drug therapy
CPT/HCPCS: 99285; 74176; 96374; 96361; 96375; 85025; 80048; 83690; 80076; 84703; 81001; 36415; J2270; J2405; J7030

== ENCOUNTER 2023-10-10 11:26 | Emergency (ER) | payer MEDICAID ==
[~2023-10-10] VITALS: Ht 167.6 cm; Wt 70.3 kg
[~2023-10-10 11:26] MED LIST changes: +HYDR-4303 PO; +PRED20TA PO
[2023-10-10 11:43] VITALS: TEMP 98.8
[2023-10-10] MEDS ORDERED: ACETAMINOPHEN ES 500 MG TABLET ONE (11:59)
[2023-10-10] MEDS ORDERED: METOCLOPRAMIDE HCL 10 MG/2 ML VIAL ONE (11:59)
[2023-10-10] MEDS ORDERED: ONDANSETRON 4 MG TAB.RAPDIS ONE (12:25)
[2023-10-10] MEDS: ONDANSETRON 4 MG TAB.RAPDIS SL ONE (12:30)
[2023-10-10] MEDS: IV NS 0.9% 1,000 ML BAG IV ONE (12:59)
[2023-10-10] MEDS: ACETAMINOPHEN ES 500 MG TABLET PO ONE (12:59)
[2023-10-10] MEDS: METOCLOPRAMIDE HCL 10 MG/2 ML VIAL IV ONE (12:59)
[2023-10-10] MEDS ORDERED: KETO10TA2 PO (14:51)
[2023-10-10] MEDS ORDERED: ONDA4TAB5 PO (14:51)
[2023-10-10] MEDS ORDERED: KETOROLAC TROMETHAMINE 15 MG/ML VIAL ONE (14:54)
[2023-10-10] MEDS: KETOROLAC TROMETHAMINE 15 MG/ML VIAL IV ONE (14:56)
[2023-10-10 15:14] VITALS: BP 113/85; O2SAT 100
== END 2023-10-10 15:17 | disposition home or self-care (01) ==
LOC: ER 11:33
DX: G43.909 Migraine, unspecified, not intractable, without status migrainosus (principal); R11.2 Nausea with vomiting, unspecified; Z88.8 Allergy status to other drugs, medicaments and biological substances
CPT/HCPCS: 99284; 96374; 96361; 96375; J2765; J7030; Q0162; J1885

== ENCOUNTER 2024-07-10 11:43 | Emergency (ER) | payer MEDICAID ==
[~2024-07-10] VITALS: Ht 167.6 cm; Wt 72.6 kg
[~2024-07-10 11:43] MED LIST changes: +KETO10TA2 PO
[2024-07-10] MEDS ORDERED: METOCLOPRAMIDE HCL 10 MG/2 ML VIAL ONE (12:17)
[2024-07-10] MEDS: IV NS 0.9% 1,000 ML BAG IV ONE (12:21)
[2024-07-10] MEDS: METOCLOPRAMIDE HCL 10 MG/2 ML VIAL IV ONE (12:22)
[2024-07-10 12:29] LABS: BASOPHILS % (AUTO) 0.7 % (0.0-2.0); EOSINOPHILS # (AUTO) 0.1 K/uL (0.0-0.7); EOSINOPHILS % (AUTO) 1.3 % (0.0-6.0); HEMATOCRIT 37 % (33-45); HEMOGLOBIN 12.5 g/dL (11.5-14.8); LYMPHOCYTES # (AUTO) 0.9 K/uL (0.8-4.8); LYMPHOCYTES % (AUTO) 14.3 % (20.0-44.0); MEAN CORPUSCULAR HEMOGLOBIN 35 PG (26.0-33.0); MEAN CORPUSCULAR HGB CONC 34 g/dl (31.0-36.0); MEAN CORPUSCULAR VOLUME 103 fL (82-100); MONOCYTES # (AUTO) 0.3 K/uL (0.1-1.30); MONOCYTES % (AUTO) 5.1 % (2.0-12.0); NEUTROPHILS # (AUTO) 4.7 K/uL (1.8-8.9); NEUTROPHILS % (AUTO) 78.6 % (43.0-81.0); PLATELET COUNT (AUTO) 237 K/uL (150-450)
[2024-07-10 12:34] LABS: CALCIUM, SERUM 9.1 mg/dL (8.5-10.1); CREATININE 0.6 mg/dL (0.6-1.3); POTASSIUM 3.3 mmol/L (3.5-5.1)
[2024-07-10] MEDS ORDERED: MORPHINE SULFATE INJ 4 MG/ML DISP.SYRIN ONE (12:39)
[2024-07-10 12:41] LABS: ALBUMIN 3.9 g/dL (3.4-5.0); BILIRUBIN,DIRECT 0.2 mg/dL (0.0-0.2); BILIRUBIN,TOTAL 0.5 mg/dL (0.2-1.0); TOTAL PROTEIN, SERUM 7.2 g/dL (6.4-8.2)
[2024-07-10] MEDS: MORPHINE SULFATE INJ 2 MG/ML DISP.SYRIN IV ONE (13:00)
[2024-07-10] MEDS ORDERED: METO-295 PO (13:58)
[2024-07-10 14:18] VITALS: BP 128/85; TEMP 98; O2SAT 100
== END 2024-07-10 14:18 | disposition home or self-care (01) ==
LOC: ER 11:58
DX: R10.84 Generalized abdominal pain (principal); R11.2 Nausea with vomiting, unspecified; R51.9 Headache, unspecified; K51.90 Ulcerative colitis, unspecified, without complications; Z79.52 Long term (current) use of systemic steroids; Z79.899 Other long term (current) drug therapy; Z88.6 Allergy status to analgesic agent
CPT/HCPCS: 99285; 96374; 96361; 96375; 93005; 74021; 85025; 80048; 83690; 80076; 85652; 36415; J2270; J2765; J7030 ×2

== ENCOUNTER 2024-08-25 14:50 | Emergency (ER) | payer MEDICAID ==
[~2024-08-25] VITALS: Ht 167.6 cm; Wt 68.0 kg
[~2024-08-25 14:50] MED LIST changes: +METO-295 PO
[2024-08-25] MEDS ORDERED: ONDANSETRON HCL/PF 4 MG/2 ML VIAL ONE (15:46)
[2024-08-25] MEDS ORDERED: KETOROLAC TROMETHAMINE 15 MG/ML VIAL ONE (15:46)
[2024-08-25] MEDS ORDERED: diphenhydrAMINE HCL 50 MG/ML VIAL ONE (15:46)
[2024-08-25 16:06] LABS: BASOPHILS # (AUTO) 0.1 K/uL (0.0-0.2); BASOPHILS % (AUTO) 2.9 % (0.0-2.0); EOSINOPHILS # (AUTO) 0.1 K/uL (0.0-0.7); EOSINOPHILS % (AUTO) 1.4 % (0.0-6.0); HEMATOCRIT 36 % (33-45); HEMOGLOBIN 12.1 g/dL (11.5-14.8); LYMPHOCYTES # (AUTO) 0.9 K/uL (0.8-4.8); LYMPHOCYTES % (AUTO) 18.3 % (20.0-44.0); MEAN CORPUSCULAR HEMOGLOBIN 34 PG (26.0-33.0); MEAN CORPUSCULAR HGB CONC 34 g/dl (31.0-36.0); MEAN CORPUSCULAR VOLUME 102 fL (82-100); MONOCYTES # (AUTO) 0.3 K/uL (0.1-1.30); MONOCYTES % (AUTO) 5.4 % (2.0-12.0); NEUTROPHILS # (AUTO) 3.5 K/uL (1.8-8.9); PLATELET COUNT (AUTO) 201 K/uL (150-450); RED BLOOD CELL COUNT(AUTO) 3.57 MIL/uL (4.0-5.2); RED CELL DISTRIBUTION WIDTH 17.4 % (11.5-15.0); WHITE BLOOD COUNT (AUTO) 4.9 K/uL (4.3-11.0)
[2024-08-25 16:08] LABS: CALCIUM, SERUM 8.7 mg/dL (8.5-10.1); CARBON DIOXIDE 23 mmol/L (21-32); CHLORIDE 102 mmol/L (98-107); CREATININE 0.6 mg/dL (0.6-1.3); GLUCOSE 83 mg/dL (74-106); POTASSIUM 4.1 mmol/L (3.5-5.1); SODIUM SERUM 138 mmol/L (136-145); UREA NITROGEN, BLOOD 8 mg/dL (7-18)
[2024-08-25] MEDS: IV NS 0.9% 1,000 ML BAG IV ONE (16:09)
[2024-08-25] MEDS: ONDANSETRON HCL/PF 4 MG/2 ML VIAL IVP ONE (16:15)
[2024-08-25] MEDS: diphenhydrAMINE HCL 50 MG/ML VIAL IV ONE (16:16)
[2024-08-25] MEDS: KETOROLAC TROMETHAMINE 15 MG/ML VIAL IV ONE (16:16)
[2024-08-25 16:20] LABS: ALANINE AMINOTRANSFERASE 41 U/L (12-78); ALCOHOL, BLOOD 228 mg/dL (0-10); ALKALINE PHOSPHATASE 115 U/L (46-116); ASPARTATE AMINOTRANSFERASE 100 U/L (15-37); BILIRUBIN,DIRECT 0.3 mg/dL (0.0-0.2); BILIRUBIN,TOTAL 1.3 mg/dL (0.2-1.0); LIPASE 23 U/L (16-77); TOTAL PROTEIN, SERUM 7.8 g/dL (6.4-8.2)
[2024-08-25 16:22] LABS: ACETAMINOPHEN <10 ug/ml (10-30); SALICYLATE < 2.8 mg/dL (2.8-20.0)
[2024-08-25] MEDS ORDERED: HYDR50TA61 PO (18:57)
[2024-08-25] MEDS ORDERED: ONDA4TAB5 PO (18:57)
[2024-08-25 19:33] VITALS: BP 118/84; TEMP 98.3; O2SAT 97
== END 2024-08-25 19:36 | disposition home or self-care (01) ==
LOC: ER 15:22
DX: R10.84 Generalized abdominal pain (principal); F10.10 Alcohol abuse, uncomplicated; K51.90 Ulcerative colitis, unspecified, without complications; Z79.52 Long term (current) use of systemic steroids; Z79.899 Other long term (current) drug therapy; Z88.6 Allergy status to analgesic agent; Y90.7 Blood alcohol level of 200-239 mg/100 ml
CPT/HCPCS: 99285; 96374; 96361; 96375; 74176; 85025; 80048; 83690; 80076; 36415; 80143; 80320; J1200; J2405; J7030; J1885; G0480